=== PATIENT | female | born 2000 | race Caucasian/White ===

== ENCOUNTER 2022-09-08 00:07 | Emergency (ER) | payer OTHER ==
[2022-09-08 01:45] LABS: BASOPHILS PERCENT AUTO 0.2 % (0.0-1.5); EOSINOPHILS ABSOLUTE AUTO 0.1 K/uL (0.0-0.7); HEMATOCRIT 34.2 % (36.0-46.0); HEMOGLOBIN 11.8 g/dL (12.0-16.0); LYMPHOCYTES ABSOLUTE AUTO 2.1 K/uL (0.6-2.4); LYMPHOCYTES PERCENT AUTO 19.1 % (16.0-40.0); MEAN CORPUSCULAR HEMOGLOBIN 28.4 pg (27.0-32.0); MEAN CORPUSCULAR HGB CONC 34.5 g/dL (31.0-37.0); MEAN CORPUSCULAR VOLUME 82.2 fL (80.0-98.0); MONOCYTES ABSOLUTE AUTO 0.9 K/uL (0.0-0.8); MONOCYTES PERCENT AUTO 8.2 % (0.0-15.0); NEUTROPHILS PERCENT AUTO 71.5 % (48.0-80.0); NRBC ABSOLUTE 0 K/uL; PLATELET COUNT,PLT 229 K/uL (150-400); RED BLOOD CELL COUNT 4.16 M/uL (4.30-5.90); WHITE BLOOD CELL COUNT,WBC 11.15 K/uL (4.0-11.0)
[2022-09-08 03:19] VITALS: BP 115/67; PULSE 61
== END 2022-09-08 03:00 | disposition home or self-care (01) ==
LOC: MW.ED 00:07
DX: O20.9 Hemorrhage in early pregnancy, unspecified (principal); Z88.0 Allergy status to penicillin; Z3A.08 8 weeks gestation of pregnancy
CPT/HCPCS: 36415; 76817; 76817-26; 84702; 85025; 86850; 86900; 86901; 99284; 99285

== ENCOUNTER 2023-04-11 14:15 | Inpatient (IN) | payer OTHER ==
[2023-04-11] MEDS: Lactated Ringers 1,000 ML IV SCH (14:36)
[2023-04-11] MEDS ORDERED: Misoprostol 200 MCG Tab PO PRN (14:48)
[2023-04-11] MEDS ORDERED: Ondansetron 4 MG/2 ML SDV IVPUSH PRN (14:48)
[2023-04-11] MEDS ORDERED: Methylergonovine 0.2 MG/1 ML Amp IM PRN (14:48)
[2023-04-11] MEDS ORDERED: Sodium Chloride 0.9% 20 ML SDV IV PRN (14:48)
[2023-04-11] MEDS ORDERED: Sodium Chloride 0.9% 2.5 ML Syringe FLUSH PRN (14:48)
[2023-04-11] MEDS ORDERED: Carboprost Tromethamine 250 MCG/1 mL Vial IM PRN (14:48)
[2023-04-11] MEDS ORDERED: Water For Irrigation,Sterile 1,000 ML Container IRR PRN (14:48)
[2023-04-11] MEDS ORDERED: Terbutaline 1 MG/ML SDV SUBCUT PRN (14:48)
[2023-04-11] MEDS ORDERED: Sodium Chloride 0.9% 10 ML Syringe FLUSH PRN (14:48)
[2023-04-11] MEDS ORDERED: Tranexamic Acid IN NACL,ISO-OS 1,000 MG in Premix Bag 1 BAG IV PRN (14:48)
[2023-04-11] MEDS ORDERED: Oxytocin/0.9 % Sodium Chloride 30 UNIT/500 ML BAG IV SCH (15:00)
[2023-04-11 15:10] LABS: HEMATOCRIT 35.2 % (37.0-47.0); HEMOGLOBIN 11.3 g/dL (12.0-16.0); MEAN CORPUSCULAR HEMOGLOBIN 25.1 pg (28.0-32.0); MEAN CORPUSCULAR HGB CONC 32.1 g/dL (32.0-36.0); MEAN PLATELET VOLUME 10.3 fL (9.4-12.3); PLATELET COUNT,PLT 189 K/uL (150-400); RED BLOOD CELL COUNT 4.51 M/uL (4.10-5.30); WHITE BLOOD CELL COUNT,WBC 8.84 K/uL (3.9-11.3)
[2023-04-11] MEDS: Oxytocin/0.9 % Sodium Chloride 30 UNIT/500 ML BAG IV SCH (15:11)
[2023-04-11] MEDS: Nalbuphine 10 MG/0.5 ML Syringe IVPUSH PRN (16:44)
[2023-04-11] MEDS ORDERED: Phenylephrine HCl 0.5 MG/5 ML AMP IVPUSH PRN (17:41)
[2023-04-11] MEDS ORDERED: ePHEDrine 50 MG/ML SDV IVPUSH PRN ×2 (17:41)
[2023-04-11] MEDS ORDERED: Ropivacaine HCl/PF 400 MG in Premix Bag 1 BAG EPIDUR SCH (17:45)
[2023-04-11] MEDS ORDERED: Docusate Sodium 100 MG Cap PO PRN (18:07)
[2023-04-11] MEDS ORDERED: Ibuprofen 800 MG Tab PO PRN (18:07)
[2023-04-11] MEDS ORDERED: oxyCODONE 5 MG Tab PO PRN (18:07)
[2023-04-11] MEDS ORDERED: Benzocaine/Menthol 20%-0.5% Spray 78 GM Cannister TOP PRN (18:07)
[2023-04-11] MEDS ORDERED: Lanolin 100% Cream 7 GM Tube TOP PRN (18:07)
[2023-04-11] MEDS ORDERED: Acetaminophen 500 MG Tab PO PRN (18:07)
[2023-04-11] MEDS ORDERED: Witch Hazel Medicated Pads 40/Jar TOP PRN (18:07)
[2023-04-11] MEDS: Lidocaine 1% 50 ML MDV INJECT PRN (18:10)
[2023-04-11] MEDS: fentaNYL 100 MCG/2 ML SDV ONE (18:11)
[2023-04-11] MEDS: Bupivacaine 0.25% 10 ML SDV ONE (18:11)
[2023-04-11 18:36] LABS: PH,UMBILICAL ARTERIAL 7.388 (7.18-7.38); PH,UMBILICAL VENOUS 7.382 (7.25-7.45)
[2023-04-12 06:16] LABS: HEMATOCRIT 33.5 % (37.0-47.0); HEMOGLOBIN 10.6 g/dL (12.0-16.0)
[2023-04-12 16:03] VITALS: BP 110/64; PULSE 86
== END 2023-04-12 19:30 | disposition home or self-care (01) | DRG 807 ==
LOC: OBSVTOIN 14:15 → MW.OB 14:15
PROVIDERS: ADMIT Obstetrics & Gynecology; ATTEND Obstetrics & Gynecology
PROC: 10E0XZZ Delivery of Products of Conception, External Approach (ICD-10-PCS; principal; 2023-04-11)
PROC: 3E033VJ Introduction of Other Hormone into Peripheral Vein, Percutaneous Approach (ICD-10-PCS; 2023-04-11)
DX: O42.02 Full-term premature rupture of membranes, onset of labor within 24 hours of rupture (principal); O99.02 Anemia complicating childbirth; D64.9 Anemia, unspecified; Z37.0 Single live birth; Z3A.39 39 weeks gestation of pregnancy
CPT/HCPCS: 36415; 59025; 82803; 85014; 85018; 85027; 85460; 86592; 86850; 86900; 86901; J2001; J2300; J2590; J2790; J3010; J3490; J7120